=== PATIENT | female | born 1940 | race African-American/Black ===

== ENCOUNTER 2018-08-05 09:49 | Day surgery (SDC) | payer MEDICARE ==
[~2018-08-05] VITALS: Ht 160 cm; Wt 62.6 kg
[2018-08-05] VITALS (9 sets, daily range): BP systolic 127–149; BP diastolic 51–74
[~2018-08-05 09:49] MED LIST: ACETAMINOPHEN-1 EAC1 ORAL; AMBIEN5 MG ORAL; ASPIR 8181 MG ORAL; ATORVASTATIN CA80 MG ORAL; CARVEDILOL25 MG ORAL; COREG6.25 MG PO; COUMADIN2 MG PO; COUMADIN5 MG ORAL; COZAAR25 MG PO; Cyclopentolate 1% Opth Sol 2ml RIGHT EYE SCH; FEOSOL1 TAB ORAL; FERROUS SULFAT325 MG ORAL; FUROSEMIDE40 MG ORAL; LASIX40 MG PO; Phenylephrine 2.5% Op 2ml Soln RIGHT EYE SCH; Tetracaine 0.5% Opth 4ml Soln RIGHT EYE SCH; VITAMIN D22000 UNIT PO; ZETIA10 MG PO
[2018-08-05] MEDS ORDERED: Vigamox Opth Soln 3ml RIGHT EYE SCH (10:00)
[2018-08-05] MEDS ORDERED: Tetracaine 0.5% Opth 4ml Soln RIGHT EYE SCH (10:00)
[2018-08-05] MEDS: Cyclopentolate 1% Opth Sol 2ml RIGHT EYE SCH ×3 (10:17→10:44)
[2018-08-05] MEDS: Phenylephrine 2.5% Op 2ml Soln RIGHT EYE SCH ×3 (10:18→10:44)
[2018-08-05] MEDS: Vigamox Opth Soln 3ml RIGHT EYE SCH ×3 (10:18→10:44)
[2018-08-05] MEDS ORDERED: Lidocaine 2% MPF 5ml Vial INJ ONE (10:19)
[2018-08-05] MEDS ORDERED: EPINEPHrine 1mg/1ml Amp ONE (10:19)
[2018-08-05] MEDS ORDERED: Lidocaine 1% MPF 10mg/ml 5ml ONE (10:19)
[2018-08-05] MEDS ORDERED: Lidocaine 4% Amp ONE (10:19)
[2018-08-05] MEDS ORDERED: Povidone-Iodine 5% opth solution ONE (10:20)
[2018-08-05] MEDS ORDERED: BSS 15ml BTL ONE (10:20)
[2018-08-05] MEDS ORDERED: Tobradex Opth Susp 2.5ml ONE (10:20)
[2018-08-05] MEDS ORDERED: Dexamethasone 4mg/ml vial ONE (10:20)
[2018-08-05] MEDS ORDERED: BSS 500ml btl ONE (10:20)
[2018-08-05] MEDS ORDERED: Tetracaine 0.5% Opth 4ml Soln ONE (10:21)
[2018-08-05] MEDS ORDERED: Acetylcholine Injection (OR) ONE (10:21)
[2018-08-05] MEDS ORDERED: Bupivacaine 0.75% 30ml vial INJ ONE (10:21)
[2018-08-05] MEDS ORDERED: Sodium Hyaluronate 14 mg/ml 0.85ml ONE (10:22)
[2018-08-05] MEDS ORDERED: Sodium Hyaluronate 10 mg/ml 0.85ml ONE ×2 (10:22→12:42)
--- NOTE | 2018-08-05 11:16 | Pre-Procedure Note/Attestation ---
Pre-Procedure Note/Attestation Complete Prior to Procedure Planned Procedure: right Procedure Narrative: Phako and IOL implant Indications for Procedure Pre-Operative Diagnosis: right cataract Attestation I attest that I discussed the nature of the procedure; its benefits; risks and complications; and alternatives (and the risks and benefits of such alternatives ), prior to the procedure, with the patient (or the patient's legal insurance verification representative). I attest that, if there was a reasonable possibility of needing a blood transfusion, the patient (or the patient's legal insurance verification representative) was given the [facility] standardized written summary, pursuant to the Dwayne Sejal Blood Safety Act ([place] Health and Safety Code # 1645, as amended). I attest that I re-evaluated the patient just prior to the surgery and that there has been no change in the patient's H&P, except as documented below: Andrea Daniels MD Aug 05, 2018 11:16
[2018-08-05] MEDS ORDERED: Sterile Water Irrig 1000ml IRRIG ONE (11:30)
[2018-08-05] MEDS ORDERED: LR 1000ml ONE (11:30)
[2018-08-05] MEDS ORDERED: NS Irrig 1000ml ONE (11:30)
[2018-08-05] MEDS ORDERED: Propofol 200mg/20ml IV ONE (11:36)
[2018-08-05] MEDS ORDERED: LR 1000ml 1,000 ML IVLG SCH (11:51)
[2018-08-05] MEDS ORDERED: fentaNYL 100 mcg/2 mL IV PRN (12:00)
--- NOTE | 2018-08-05 12:07 | Anethesia Preoperative Eval ---
Anesthesia Pre-op PMH/ROS General Date of Evaluation: Aug 05, 2018 Time of Evaluation: 11:20 Anesthesiologist: Yesenia ASA Score: ASA 3 Mallampati Score Class I : Soft palate, uvula, fauces, pillars visible Class II: Soft palate, uvula, fauces visible Class III: Soft palate, base of uvula visible Class IV: Only hard plate visible Mallampati Classification: Class II Surgeon: Jeremiah Diagnosis: Cataract right eye Surgical Procedure: Extraction of cataract with IOL implant Family History: no anesthesia problems Allergies: Coded Allergies: No Known Allergies (Unverified , 07/08/18) Medications: see eMAR Patient NPO?: Yes NPO Date: Aug 04, 2018 NPO Time: 19:00 Past Medical History Cardiovascular: Reports: HTN, CAD, [place], arrhythmia; Denies: valve dz, other Pulmonary: Denies: asthma, COPD, ELVIN, other Gastrointestinal/Genitourinary: Denies: GERD, CRI, ESRD, other Neurologic/Psychiatric: Reports: CVA; Denies: dementia, depression/anxiety, TIA, other Endocrine: Reports: hypothyroidism; Denies: DM, steroids, other HEENT: Reports: cataract (L), cataract (R); Denies: glaucoma, KAKTOVIK (L), KAKTOVIK (R), other Hematology/Immune: Reports: anemia; Denies: DVT, bleeding disorder, other Musculoskeletal/Integumentary: Denies: OA, RA, DJD, DDD, edema, other PMH Narrative: CAD, OK, PPM, AICD, CVA, hypothyroid PSxH Narrative: CABG, thyroidectomy, PPM, AICD, bilateral breast reduction Anesthesia Pre-op Phys. Exam Physician Exam Last Vital Signs Date Time Temp Pulse Resp B/P (MAP) Pulse Ox O2 Delivery O2 Flow Rate FiO2 08/05/18 10:24 97.7 60 20 132/61 100 Room Air 97.7 Constitutional: NAD Neurologic: CN 2-12 intact Cardiovascular: RRR, no M/R/G Respiratory: CTA Gastrointestinal: S/NT/ND Airway Exam Mallampati Score: Class II MO: full ROM: full Anesthesia Pre-op A/P Labs No contraindication for surgery Studies Pre-op Studies: EKG - PPM, CXR - Small pulmonary effusion Risk Assessment & Plan Assessment: Class 3 patient with multi organ disease now for cataract extraction with IOL implant Plan: MAC Status Change Before Surgery: No Pre-Antibiotics Drug: None Dwayne Patterson MD Aug 05, 2018 12:07
--- NOTE | 2018-08-05 12:08 | Immediate Post-Op Evaluation ---
Immediate Post-Op Evalulation Immediate Post-Op Evalulation Procedure: Cataract extraction with IOL right eye Date of Evaluation: Aug 05, 2018 Time of Evaluation: 12:50 IV Fluids: 400 Blood Pressure Systolic: 149 Blood Pressure Diastolic: 74 Pulse Rate: 60 Respiratory Rate: 15 O2 Sat by Pulse Oximetry: 95 Temperature (Fahrenheit): 97.0 Pain Score (1-10): 0 Nausea: No Vomiting: No Complications No complication Patient Status: awake, patent, none Hydration Status: adequate Drug: None Dwayne Patterson MD Aug 05, 2018 12:08
--- NOTE | 2018-08-05 12:41 | 48 Hour Post Anesthesia Eval ---
Post Anesthesia Evaluation Procedure: Cataract extraction with IOL right eye Date of Evaluation: Aug 05, 2018 Time of Evaluation: 13:10 Blood Pressure Systolic: 146 0: 61 Pulse Rate: 60 Respiratory Rate: 15 O2 Sat by Pulse Oximetry: 96 Airway: patent Nausea: No Vomiting: No Pain Intensity: 0 Hydration Status: adequate Cardiopulmonary Status: Stable Mental Status/LOC: patient returned to baseline Follow-up Care/Observations: As per surgery Post-Anesthesia Complications: No anesthetic complication Follow-up care needed: N/A Dwayne Patterson MD Aug 05, 2018 12:41
--- NOTE | 2018-08-05 12:46 | Brief Operative Note ---
Immediate Post Operative Note Operative Note Pre-op Diagnosis: right cataract Procedure: right phako and IOL implant Post-op Diagnosis: same Post-op Diagnosis: same as pre-op Surgeon: Andrea Daniels Babcock Tester: none Additional Surgeons: none Anesthesiologist: Brayden Anesthesia: MAC Specimen: none Complications: none Condition: stable Fluids: LR Drains: none Implant(s) used?: Yes Andrea Daniels MD Aug 05, 2018 12:46
--- NOTE | 2018-08-05 21:30 | Operative Note - Dictated ---
DATE OF OPERATION: 08/05/2018 PREOPERATIVE DIAGNOSIS: Degenerative cataract, right eye. POSTOPERATIVE DIAGNOSIS: Degenerative cataract, right eye. PROCEDURE: Right extracapsular cataract extraction with phacoemulsification and primary insertion of posterior chamber intraocular lens implant. SURGEON: Andrea Daniels M.D. ANESTHESIA: MAC by Dr. Patterson INDICATIONS: The best corrected vision is 20/100 in the operative eye. FINDINGS: See indications and diagnoses. DESCRIPTION OF PROCEDURE: The patient received preoperatively topical antibiotics, dilating drops, tetracaine, and was brought into the operating room and given satisfactory sedation by the anesthesiologist. A total of 10 mL of mixture half and half Xylocaine 2% with epinephrine and Marcaine 0.75% were injected as modified Caal akinesia and peribulbar anesthesia (4 mL). The patient was then prepped and draped in the usual manner. A Joey speculum was placed and a 3 mm wide incision was made at the lateral limbus just anterior to the arcades. The anterior chamber was penetrated at the 6 and 12 oclock position and slowly decompressed. A nonpreserved 1% Xylocaine was used to further enhance intraocular anesthesia. Under viscoelastic, the anterior chamber was penetrated through the vertical incision with a 3-mm wide keratome. A capsulorrhexis was done followed by hydrodissection. The nucleus was phacoemulsified with [employer] unit and OZIL technology. Cortical remnants were removed with the IA tip of the same unit. The intraocular lens was removed from its pack. It is a model [id number] from [employer]. The power was 20.0 D. The serial number is [id number]. The lens was loaded onto the Bruni II delivery system, and injected into the capsular bag with the haptics dialed to the vertical meridian and the tap test confirming the adequate placement of the lens. The IA tip was then used to replace viscoelastic with balanced salt solution. The incisions were hydrated and were found to be watertight. Prior to that, Miochol was injected to reduce pupil size. Dexamethasone was injected into the inferior Tenon space, 1 mL. Vigamox drops and TobraDex ointment were applied. The eye was closed. The patch and shield were applied. The patient tolerated well the procedure and left the operating room in good condition. Final diagnoses and procedures are as above. Andrea Daniels M.D. DR: JESE JOB#: [id number] CC:
== END 2018-08-05 14:00 | disposition home or self-care (01) ==
LOC: SUR 09:49
DX: H25.89 Other age-related cataract (principal); I48.91 Unspecified atrial fibrillation; Z79.01 Long term (current) use of anticoagulants; I13.0 Hypertensive heart and chronic kidney disease with heart failure and stage 1 through stage 4 chronic kidney disease, or unspecified chronic kidney disease; I50.22 Chronic systolic (congestive) heart failure; N18.4 Chronic kidney disease, stage 4 (severe); E03.9 Hypothyroidism, unspecified; I25.10 Atherosclerotic heart disease of native coronary artery without angina pectoris; Z95.1 Presence of aortocoronary bypass graft; E78.5 Hyperlipidemia, unspecified; D64.9 Anemia, unspecified; I42.9 Cardiomyopathy, unspecified; I25.2 Old myocardial infarction; J45.909 Unspecified asthma, uncomplicated; N25.81 Secondary hyperparathyroidism of renal origin; Z86.73 Personal history of transient ischemic attack (TIA), and cerebral infarction without residual deficits; Z95.810 Presence of automatic (implantable) cardiac defibrillator; Z95.2 Presence of prosthetic heart valve; Z79.82 Long term (current) use of aspirin
CPT/HCPCS: 66984; J0171; J1100; J2704; J3370; J3490; V2632; 94003; 94150